=== PATIENT | female | born 1945 ===

== ENCOUNTER → 2022-10-18 | Outpatient (CLI) | payer MEDICARE, BC ==
--- NOTE | 2022-10-18 12:52 | US ---
EXAMINATION TYPE: US venous doppler duplex LE RT DATE OF EXAM: 10/18/2022 12:38 PM COMPARISON: NONE CLINICAL INDICATION: Female, 76 years old with history of I80.9 PHLEBITIS; Pain right knee SIDE PERFORMED: right TECHNIQUE: The lower extremity deep venous system is examined utilizing real time linear array sonog vilma with graded compression, doppler sonography and color-flow sonography. VESSELS IMAGED: Common Femoral Vein Deep Femoral Vein Greater Saphenous Vein * Femoral Vein Popliteal Vein Small Saphenous Vein * Proximal Calf Veins (* superficial vessels) Right Leg: No evidence of DVT IMPRESSION: Grayscale, color doppler, spectral doppler imaging performed of the deep veins of the lo wer extremities. There is normal flow, compressibility, vascular waveforms.
== END | disposition home or self-care (01) ==
LOC: RADUSWWP 12:16
PROVIDERS: ATTEND Orthopaedic Surgery
DX: I80.3 Phlebitis and thrombophlebitis of lower extremities, unspecified (principal); M17.0 Bilateral primary osteoarthritis of knee; M11.261 Other chondrocalcinosis, right knee; M11.262 Other chondrocalcinosis, left knee